=== PATIENT | male | born 1965 | race Caucasian/White ===

== ENCOUNTER 2017-01-15 14:59 | Inpatient (IN) | payer BC ==
[~2017-01-15] VITALS: Ht 167.6 cm; Wt 108.0 kg
[~2017-01-15 14:59] MED LIST: IBUP-238 PO; NICO2GUM68 TOP; NYSTT TOP; Z.0.NO CURRENT MEDS
[2017-01-15 15:01] VITALS: BP 177/91; PULSE 68; RESP 16; TEMP 98.7; O2SAT 98
[2017-01-15] MEDS ORDERED: SODIUM CHLORIDE 0.9% FLUSH 10 ML FLUSH IVF PRN (16:45)
[2017-01-15 16:53] VITALS: RESP 18; O2SAT 98
[2017-01-15 17:12] LABS: AUTOMATED NEUTROPHIL # 5.2 TH/MM3 (1.8-7.7); BASOPHIL % 0.6 % (0.0-2.0); EOSINOPHIL # 0.1 TH/MM3 (0-0.4); EOSINOPHIL % 1.6 % (0.0-4.0); HEMATOCRIT 41.1 % (39.0-51.0); HEMO FLAGS DIFF FINAL; LYMPH % 26.1 % (9.0-44.0); LYMPHOCYTE # 2.1 TH/MM3 (1.0-4.8); MEAN CORPUSCULAR HEMOGLOBIN 30.4 PG (27.0-34.0); MEAN CORPUSCULAR HGB CONC 33.4 % (32.0-36.0); MONO % 6.4 % (0.0-8.0); NEUT % 65.3 % (16.0-70.0); PLATELET COUNT 219 TH/MM3 (150-450); RED BLOOD COUNT 4.51 MIL/MM3 (4.50-5.90); RED CELL DISTRIBUTION WIDTH 13.7 % (11.6-17.2)
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
--- NOTE | 2017-01-15 17:19 | RADRPT ---
EXAM DATE/TIME: 01/15/2017 16:49 [facility] COMPARISON: CT BRAIN W/O CONTRAST, November 03, 2009, 20:39. INDICATIONS : Right leg numbness for one week. RADIATION DOSE: 56.35 CTDIvol (mGy) MEDICAL HISTORY : Cardiovascular disease. SURGICAL HISTORY : None. ENCOUNTER: Initial ACUITY: 1 day PAIN SCALE: 0/10 LOCATION: Bilateral head TECHNIQUE: Multiple contiguous axial images were obtained of the head. Using automated exposure control and adj ustment of the mA and/or kV according to patient size, radiation dose was kept as low as reasonably a chievable to obtain optimal diagnostic quality images. FINDINGS: CEREBRUM: The ventricles are normal for age. No evidence of midline shift, mass lesion, hemorrhage or acute in farction. No extra-axial fluid collections are seen. Incidental note of cavum septa pellucida. POSTERIOR FOSSA: The cerebellum and brainstem are intact. The 4th ventricle is midline. The cerebellopontine angle i s unremarkable. EXTRACRANIAL: The visualized portion of the orbits is intact. SKULL: The calvaria is intact. No evidence of skull fracture. CONCLUSION: Negative noncontrast CT brain. Isidoro Reyna MD on January 15, 2017 at 17:16 Board Certified Radiologist. This report was verified electronically.
[2017-01-15 17:22] LABS: APTT (PATIENT) 27.5 SEC (24.3-30.1); PROTHROMBIN TIME - PATIENT 11.1 SEC (9.8-11.6)
--- NOTE | 2017-01-15 17:26 | RADRPT ---
EXAM DATE/TIME: 01/15/2017 17:19 [facility] COMPARISON: No previous studies available for comparison. INDICATIONS : Weakness. Short of breath. MEDICAL HISTORY : None. SURGICAL HISTORY : None. ENCOUNTER: Initial ACUITY: 1 day PAIN SCORE: 5/10 LOCATION: Bilateral chest FINDINGS: A single view of the chest demonstrates the lungs to be symmetrically aerated without evidence of mas s, infiltrate or effusion. The cardiomediastinal contours are unremarkable. Osseous structures are intact. CONCLUSION: The lungs are clear. Isidoro Reyna MD on January 15, 2017 at 17:23 Board Certified Radiologist. This report was verified electronically.
--- NOTE | 2017-01-15 17:28 | RADRPT ---
EXAM DATE/TIME: 01/15/2017 17:20 [facility] COMPARISON: No previous studies available for comparison. INDICATIONS : Cord compression. Pain and weakness down right leg. MEDICAL HISTORY : None. SURGICAL HISTORY : None. ENCOUNTER: Initial ACUITY: 3 months PAIN SCORE: 7/10 LOCATION: Bilateral Paraspinal FINDINGS: Two view examination was performed. There are five non-rib bearing vertebral bodies. The vertebral bodies are in normal alignment without evidence of subluxation or scoliosis. The disc spaces are arnav ntained. The pedicles are intact. Bony mineralization is normal. No fracture is identified. CONCLUSION: Negative exam. Isidoro Reyna MD on January 15, 2017 at 17:26 Board Certified Radiologist. This report was verified electronically.
[2017-01-15] MEDS ORDERED: SODIUM CHLOR 0.9% 1000 ML INJ 1,000 ML IV ONE (17:30)
[2017-01-15 17:33] LABS: ANION GAP 8 MEQ/L (5-15); AST (GOT) 21 U/L (15-37); BICARBONATE 27.7 MEQ/L (21.0-32.0); BLOOD UREA NITROGEN 11 MG/DL (7-18); CHLORIDE 106 MEQ/L (98-107); GLOMERULAR FILTRATION RATE 74 ML/MIN (>89); POTASSIUM 3.9 MEQ/L (3.5-5.1); SODIUM (NA) 142 MEQ/L (136-145)
[2017-01-15 17:37] LABS: ALKALINE PHOSPHATASE 100 U/L (45-117); ALT (GPT) 34 U/L (12-78); CREATINE KINASE 87 U/L (39-308); TOTAL BILIRUBIN ADULT 0.4 MG/DL (0.2-1.0)
[2017-01-15 18:01] LABS: BLOOD, URINE NEG (NEG); COMMENT (UR) CATH-CULT NOT IND; CULTURE IF INDICATED CATH CULTURE NOT IND; GLUCOSE,URINE NEG (NEG); KETONE, URINE NEG (NEG); MUCUS URINE FEW /lpf (OCC); NITRITE,URINE NEG (NEG); URINE COLOR YELLOW (YELLW/STRAW)
[2017-01-15 18:37] VITALS: BP 126/68; PULSE 70; RESP 18; O2SAT 97
--- NOTE | 2017-01-15 19:13 | PD ---
Data Data Last Documented VS Vital Signs Date Time Temp Pulse Resp B/P Pulse Ox O2 Delivery O2 Flow Rate FiO2 01/15/17 18:37 70 18 126/68 97 Room Air 01/15/17 15:01 98.7 Orders Electrocardiogram (01/15/17 16:42) Prothrombin Time / Inr (Pt) (01/15/17 16:42) Act Partial Throm Time (Ptt) (01/15/17 16:42) Complete Blood Count With Diff (01/15/17 16:42) Comprehensive Metabolic Panel (01/15/17 16:42) Creatine Kinase (Cpk) (01/15/17 16:42) Troponin I (01/15/17 16:42) Urinalysis - C+S If Indicated (01/15/17 16:42) Ct Brain W/O Iv Contrast(Rout) (01/15/17 16:42) Chest, Single Ap (01/15/17 16:42) Ecg Monitoring (01/15/17 16:42) Iv Access Insert/Monitor (01/15/17 16:42) Oximetry (01/15/17 16:42) Blood Glucose (01/15/17 16:42) Sodium Chloride 0.9% Flush (Ns Flush) (01/15/17 16:45) Spine, Lumbar - Ltd (Ap & Lat) (01/15/17 ) Bladder Scan PRN (01/15/17 16:42) Sodium Chlor 0.9% 1000 Ml Inj (Ns 1000 M (01/15/17 17:30) Mri L Spine W/O Contrast (01/15/17 ) Mri T Spine W/O Contrast (01/15/17 ) Mri C Spine W&W/O Contrast (01/15/17 ) Gadodiamide Pf Inj (Omniscan Pf Inj) (01/15/17 20:19) Admit Order (Ed Use Only) (01/15/17 22:11) Labs Laboratory Tests Test 01/15/17 01/15/17 16:40 17:30 White Blood Count 8.0 TH/MM3 Red Blood Count 4.51 MIL/MM3 Hemoglobin 13.7 GM/DL Hematocrit 41.1 % Mean Corpuscular Volume 91.0 FL Mean Corpuscular Hemoglobin 30.4 PG Mean Corpuscular Hemoglobin 33.4 % Concent Red Cell Distribution Width 13.7 % Platelet Count 219 TH/MM3 Mean Platelet Volume 9.2 FL Neutrophils (%) (Auto) 65.3 % Lymphocytes (%) (Auto) 26.1 % Monocytes (%) (Auto) 6.4 % Eosinophils (%) (Auto) 1.6 % Basophils (%) (Auto) 0.6 % Neutrophils # (Auto) 5.2 TH/MM3 Lymphocytes # (Auto) 2.1 TH/MM3 Monocytes # (Auto) 0.5 TH/MM3 Eosinophils # (Auto) 0.1 TH/MM3 Basophils # (Auto) 0.0 TH/MM3 CBC Comment DIFF FINAL Differential Comment Prothrombin Time 11.1 SEC Prothromb Time International 1.0 RATIO Ratio Activated Partial 27.5 SEC Thromboplast Time Sodium Level 142 MEQ/L Potassium Level 3.9 MEQ/L Chloride Level 106 MEQ/L Carbon Dioxide Level 27.7 MEQ/L Anion Gap 8 MEQ/L Blood Urea Nitrogen 11 MG/DL Creatinine 1.06 MG/DL Estimat Glomerular Filtration 74 ML/MIN Rate Random Glucose 90 MG/DL Calcium Level 8.6 MG/DL Total Bilirubin 0.4 MG/DL Aspartate Amino Transf 21 U/L (AST/SGOT) Alanine Aminotransferase 34 U/L (ALT/SGPT) Alkaline Phosphatase 100 U/L Total Creatine Kinase 87 U/L Troponin I LESS THAN 0.02 NG/ML Total Protein 7.2 GM/DL Albumin 3.6 GM/DL Urine Color YELLOW Urine Turbidity CLEAR Urine pH 6.0 Urine Specific [place] 1.023 Urine Protein NEG mg/dL Urine Glucose (UA) NEG mg/dL Urine Ketones NEG mg/dL Urine Occult Blood NEG Urine Nitrite NEG Urine Bilirubin NEG Urine Urobilinogen 4.0 MG/DL Urine Leukocyte Esterase NEG Urine RBC LESS THAN 1 /hpf Urine WBC LESS THAN 1 /hpf Urine Mucus FEW /lpf Microscopic Urinalysis Comment CATH-CULT NOT IND MDM Medical Record Reviewed: Yes Supervised Visit with TANYA: No Interpretation(s) Last Impressions Head CT 01/15/171641 Signed Impressions: Service Date/Time: Sunday, January 15, 2017 16:49 - CONCLUSION: Negative noncontrast CT brain. Isidoro Reyna MD Chest X-Ray 01/15/171641 Signed Impressions: Service Date/Time: Sunday, January 15, 2017 17:19 - CONCLUSION: The lungs are clear. Isidoro Reyna MD Thoracic Spine MRI 01/15/17 0000 Signed Impressions: Service Date/Time: Sunday, January 15, 2017 18:14 - CONCLUSION: 1. Small epidural impressions due to disc bulge or protrusions at T5-6, T7-8, and T8-9. No evidence of cord compression. 2. Incompletely evaluated on this examination is also a focal signal abnormality in the substance of the cervical cord at the superior C7 level characterized by T2 prolongation. Differential considerations include tumor, myelomalacia, and syrinx. Isidoro Reyna MD Lumbar Spine X-Ray 01/15/17 Signed Impressions: Service Date/Time: Sunday, January 15, 2017 17:20 - CONCLUSION: Negative exam. Isidoro Reyna MD Lumbar Spine MRI 01/15/17 0000 Signed Impressions: Service Date/Time: Sunday, January 15, 2017 18:14 - CONCLUSION: Small central disc protrusion at L5-S1 with associated annular tear predominantly contained within the epidural fat. No evidence of neural impingement. Isidoro Reyna MD Cervical Spine MRI 01/15/17 Signed Impressions: Service Date/Time: Sunday, January 15, 2017 20:02 - CONCLUSION: 1. Focal signal abnormality within the bilateral anterior column of the cervical cord at the C6 and C7 level characterized by T2 prolongation but no enhancement. 2. Moderate-sized right paracentral disc protrusion at C5-6 causing mild impression upon the right half of the cervical cord. Isidoro Reyna MD Narrative Course During the course of the patients emergency department visit, the patients history, examination, and differential diagnosis were reviewed with the patient. The patient had IV access obtained and blood work sent for analysis. The patient was placed on a cardiac cath lab manager with oximetry and blood pressure monitoring. An EKG was done on arrival. The patient's EKG shows a sinus bradycardia, no acute ST segment elevation or depression, T waves inverted in lead 3, V1. The case was checked out to me for review the patient's MRI of the T-spine and L-spine by Dr. Okeefe. She suspected that the patient's evaluation will be unremarkable, not require admission to the hospital and the patient will be up to be followed up as an outpatient. The patient was initially provided normal saline 1 L IV fluid bolus times one. The patients laboratory studies were reviewed and remarkable for a CBC that is within normal limits, CMP is remarkable for a GFR of 74, CPK 87, troponin I less than 0.02, PT PTT unremarkable, urinalysis shows 4 urobilinogen, otherwise unremarkable Radiology studies were reviewed and remarkable for a CT scan of the brain that shows a negative noncontrast CT, chest x-ray is unremarkable. Lumbar x-ray shows no acute abnormality. MRI of the T-spine showed an abnormality that was involving the lower C-spine. At [address] Pal regarding this patient's case. He reviewed the patient's MRI findings. He recommended that an emergent MRI of the C-spine with and without contrast be ordered in this patient. He was concerned about the appearance of the lower C-spine and the possibility of a transverse myelitis. MRI of the C-spine came back with an area of edema involving the cord continuing to be suspicious for transverse myelitis versus multiple sclerosis. I spoke to Dr. Pal regarding this finding. He recommended that the patient be admitted to the hospitalist group and that neurology be consulted and patient. He will continue to see the patient in consultation. The patients results were discussed with the patient, including the plan of care. I explained that further testing and/ or monitoring is indicated based on the patients history, examination, and/ or laboratory findings. Therefore, I recommended admission for additional evaluation. The patient expressed understanding and was agreeable with this plan. The patient was admitted to the hospital in stable condition and sent to a bed under the care of the [facility]. Physician Communication Physician Communication At [address] Pal regarding this patient's case. He reviewed the patient's MRI findings. He recommended that an emergent MRI of the C-spine with and without contrast be ordered in this patient. He was concerned about the appearance of the lower C-spine and the possibility of a transverse myelitis. MRI of the C-spine came back with an area of edema involving the cord continuing to be suspicious for transverse myelitis versus multiple sclerosis. I spoke to Dr. Pal regarding this finding. He recommended that the patient be admitted to the hospitalist group and that neurology be consulted and patient. He will continue to see the patient in consultation. I spoke to Moses Noguera, he did agree to admit the patient to the [facility]. Diagnosis Primary Impression: Leg weakness, bilateral Additional Impressions: Paresthesias Ataxia Admitting Information Admitting Physician Requests: Admit Destinee Crawford MD Jan 15, 2017 19:13
--- NOTE | 2017-01-15 19:30 | RADRPT ---
EXAM DATE/TIME: 01/15/2017 18:14 [facility] COMPARISON: No previous studies available for comparison. INDICATIONS : Radiculopathy. Upper extremity numbness. MEDICAL HISTORY : None. SURGICAL HISTORY : Appendectomy. ENCOUNTER: Initial ACUITY: 1 day PAIN SCORE: 5/10 LOCATION: Paraspinal TECHNIQUE: Multiplanar multisequence MRI of the thoracic spine was performed. FINDINGS: VERTEBRA: Normal vertebral body height. Homogeneous marrow signal. ALIGNMENT: Normal. CORD: There is normal alignment of the vertebral bodies of the thoracic spine with preservation of vertebra l body height. No signal abnormality seen in the marrow of the thoracic vertebral bodies. The thora cic cord is normal in configuration without focal signal abnormality. The conus is at the level of T 12. Incompletely evaluated at the periphery of the field of view is a focal rounded area of T2 prolo ngation within the substance of the cervical cord at the superior C7 level which measures 5 mm in siz e. T1-T2: Normal. T2-T3: The thecal sac has a normal diameter. No evidence of disc bulge or protrusion. T3-T4: The thecal sac has a normal diameter. No evidence of disc bulge or protrusion. T4-T5: The thecal sac has a normal diameter. No evidence of disc bulge or protrusion. T5-T6: Small right paracentral protrusion of the disc causing focal indentation of the thecal sac. Some CSF still seen surrounding the thoracic cord. No lateral extension. T6-T7: The thecal sac has a normal diameter. No evidence of disc bulge or protrusion. T7-T8: Mild bulging of the disc right paracentral without significant deformity of the thecal sac. T8-T9: Small central protrusion of the disc causes focal indentation on the thecal sac. Some CSF is still s een surrounding the thoracic cord. T9-T10: The thecal sac has a normal diameter. No evidence of disc bulge or protrusion. T10-T11: The thecal sac has a normal diameter. No evidence of disc bulge or protrusion. T11-T12: The thecal sac has a normal diameter. No evidence of disc bulge or protrusion. T12-L1: The thecal sac has a normal diameter. No evidence of disc bulge or protrusion. CONCLUSION: 1. Small epidural impressions due to disc bulge or protrusions at T5-6, T7-8, and T8-9. No evidence of cord compression. 2. Incompletely evaluated on this examination is also a focal signal abnormality in the substance of the cervical cord at the superior C7 level characterized by T2 prolongation. Differential considerat ions include tumor, myelomalacia, and syrinx. Isidoro Reyna MD on January 15, 2017 at 19:24 Board Certified Radiologist. This report was verified electronically.
--- NOTE | 2017-01-15 19:32 | RADRPT ---
EXAM DATE/TIME: 01/15/2017 18:14 [facility] COMPARISON: No previous studies available for comparison. INDICATIONS : Radiculopathy. Low back and bilateral leg pain. MEDICAL HISTORY : None. SURGICAL HISTORY : Appendectomy. ENCOUNTER: Initial ACUITY: 1 day PAIN SCORE: 5/10 LOCATION: Paraspinal TECHNIQUE: Multiplanar multisequence MRI of the lumbar spine was performed without contrast. FINDINGS: The most caudal appearing lumbar vertebra is numbered as L5. VERTEBRAE: Homogeneous signal. Normal alignment. CONUS: Normal level and configuration. T12-L1: The thecal sac has a normal diameter. No evidence of disc bulge or protrusion. The neural foramina are patent bilaterally. L1-L2: The thecal sac has a normal diameter. No evidence of disc bulge or protrusion. The neural foramina are patent bilaterally. L2-L3: The thecal sac has a normal diameter. No evidence of disc bulge or protrusion. The neural foramina are patent bilaterally. L3-L4: The thecal sac has a normal diameter. No evidence of disc bulge or protrusion. The neural foramina are patent bilaterally. L4-L5: The thecal sac has a normal diameter. No evidence of disc bulge or protrusion. The neural foramina are patent bilaterally. L5-S1: There is a high intensity zone signal in the inferior posterior midline annulus and there is a mild c entral protrusion of the disc which is contained within the epidural fat. No impression upon the the jose sac and no deviation of the S1 nerve roots as they course of the bony spinal canal. CONCLUSION: Small central disc protrusion at L5-S1 with associated annular tear predominantly contained within th e epidural fat. No evidence of neural impingement. Isidoro Reyna MD on January 15, 2017 at 19:28 Board Certified Radiologist. This report was verified electronically.
[2017-01-15] MEDS ORDERED: GADODIAMIDE PF 287 MG/ML 20 ML VIAL (for RAD MRI) IV ONE (20:19)
--- NOTE | 2017-01-15 21:04 | RADRPT ---
EXAM DATE/TIME: 01/15/2017 20:02 [facility] COMPARISON: MRI THORACIC SPINE W/O CONTRAST, January 15, 2017, 18:14. INDICATIONS : Ataxia, abnormal thoracic MRI. CONTRAST: 20 cc Omniscan (gadodiamide) IV MEDICAL HISTORY : None. SURGICAL HISTORY : Appendectomy. ENCOUNTER: Initial ACUITY: 1 day PAIN SCORE: 0/10 LOCATION: Paraspinal TECHNIQUE: Multiplanar, multisequence MRI examination of the cervical spine was performed. FINDINGS: There is straightening of the cervical lordosis. Vertebral body height is maintained. There is T1 a nd T2 prolongation in the anterior superior endplate of C7. There is also enhancement seen in the sa me portion of the vertebral body with the area of enhancement measuring 7 mm. The examination was performed to characterize this signal abnormality seen on the thoracic MRI. Ther e is evidence of T2 prolongation in the anterior one half of the cervical cord centered at the C6-7 l evel. On axial planes, there are 2 discrete areas of T2 prolongation correlating to the left and rig ht anterior column. This area of signal abnormality measures 1 cm in superior inferior extent. On t he postcontrast images, there is no abnormal enhancement. There is no T1 prolongation. There is also a right 3 mm protrusion of the C5-6 disc indenting of the thecal sac and causing some i mpression upon the ventral cervical cord. No extension to the left of midline. There is some extens ion into the neural foramen on the right side with probable right-sided neural impingement. No evidence of disc bulge or protrusion at the other levels. Bony neural foramen remain patent. CONCLUSION: 1. Focal signal abnormality within the bilateral anterior column of the cervical cord at the C6 and C 7 level characterized by T2 prolongation but no enhancement. 2. Moderate-sized right paracentral disc protrusion at C5-6 causing mild impression upon the right varela lf of the cervical cord. Isidoro Reyna MD on January 15, 2017 at 20:45 Board Certified Radiologist. This report was verified electronically.
[2017-01-16] MEDS ORDERED: SENNOSIDES 8.6 MG TAB PO PRN
[2017-01-16] MEDS ORDERED: ACETAMINOPHEN 325 MG TAB PO PRN
[2017-01-16] MEDS ORDERED: BISACODYL 10 MG SUPP RECTAL PRN
[2017-01-16] MEDS ORDERED: ONDANSETRON HCL 4 MG/2 ML VIAL IVP PRN
[2017-01-16] MEDS ORDERED: NALOXONE HCL 0.4 MG/ML AMP IV PRN
[2017-01-16] MEDS ORDERED: traMADol HCL 50 MG TAB PO PRN (00:45)
[2017-01-16] MEDS: HEPARIN SODIUM - SQ 10,000 UNITS/ML VIAL SQ SCH ×2 (02:18→09:53)
[2017-01-16 02:36] VITALS: BP 118/58; PULSE 60; RESP 20; TEMP 98.2; O2SAT 96
[2017-01-16 07:55] VITALS: BP 133/83; PULSE 55; RESP 18; TEMP 98.1; O2SAT 97
[2017-01-16] MEDS: GABAPENTIN 300 MG CAP PO SCH ×2 (09:00→20:29)
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
--- NOTE | 2017-01-16 10:24 | MB ---
cc: SAMI DILLARD MD DATE OF CONSULTATION: 01/16/2017 REASON FOR CONSULTATION Abnormal findings on the MRI C-spine. HISTORY OF PRESENT ILLNESS Mr. Ramirez is a 51-year-old male who presented to the emergency room with multiple complaints. He states that he has not been feeling well for the past few weeks. He has noticed that over the last few months he had pain in the right shoulder area and lower back, constant and dull. Denies shooting, burning or radiating pain to the right upper extremity, however, he endorses numbness over the right little, ring and middle fingers with no reported weakness. He also states that when he walks he tends to lean to the left with occasional vertigo. He denies double vision but occasional blurred vision episodes associated with constant headache "like migraine" where he becomes photosensitive and phono-sensitive. He denies slurred speech, difficulty with speech, numbness of the face, loss of vision, convulsions, weakness of an extremity or abnormal sphincter control. The patient states that his symptoms are progressive over the last few months and he is here mainly for the pain in the right shoulder and right thigh. He occasionally walks "dragging my leg." PAST MEDICAL HISTORY Heart murmur. PAST SURGICAL HISTORY Noncontributory. SOCIAL HISTORY Denies tobacco or substance abuse. He drinks alcohol once per month. ALLERGIES 1. MORPHINE. 2. PERCOCET. MEDICATIONS 1. Tramadol. 2. Nonsteroidal anti-inflammatory drugs. REVIEW OF SYSTEMS A 12-point review of systems is negative except for what is stated in the HPI. PHYSICAL EXAMINATION GENERAL: Awake, alert, good historian, in mild distress due to right shoulder pain. HEENT: Atraumatic, normocephalic. Intact hearing and intact vision. NECK: Trachea in the midline. No signs of meningeal irritation. CARDIOVASCULAR: Regular rate and rhythm. PULMONARY: Clear to auscultation. No wheezes. ABDOMEN: Soft abdomen, nontender. EXTREMITIES: No obvious deformity. No clubbing, cyanosis or edema. Moves extremities equally. NEUROLOGIC: Awake, alert, oriented to time, person and place. Intact speech. Intact speech content. No dysphasia. Cranial nerves II-XII are grossly intact. Intact external ocular motility. No nystagmus. No diplopia. No facial asymmetry. Motor system 5/5 bilateral and symmetrical upper extremities. Normal tone. No abnormal movements. Right lower extremity 5-/5 right hip flexion and right foot dorsiflexion, otherwise 5/5 in the other muscle groups and the left lower extremity.Reflexes are diminished throughout, bilateral and symmetrical. Questionable hyporeflexia/areflexia, sluggish b/l ankle reflexes after reinforcement. Plantars right downgoing, left downgoing with strong withdrawal reflex. [id number], [id number] are bilaterally intact. Sensation to temperature exam is exaggerated on the right upper extremity with questionable sensory level. PSYCHIATRIC: Appropriate mood, affect, insight and judgment. LABORATORY - WBC 8, hemoglobin 13.7, MCV 91, platelet count 219. Sodium 142, potassium 3.9 , BUN 11, creatinine 1.06.PT 11.1, INR 1. IMAGING - Thoracic spine MRI revealed small epidural impression due to disc bulge protrusion at T5-T6, T7-T8 and T8-T9. No evidence of cord compression. Incompletely evaluated on this examination is also a focal signal abnormality in the substance of the cervical cord at the superior C7 level characterized by T2 prolongation. Differential considerations include tumor, myelomalacia and syrinx. - Lumbar spine x-ray: Negative exam. - Lumbar spine MRI revealed small central disc protrusion at L5-S1 with associated annular tear predominately contained within the epidural fat. No evidence of neural impingement. - Cervical spine MRI revealed focal signal abnormality within the bilateral anterior column of the cervical cord at the C6 and C7 level characterized by T2 prolongation but no enhancement. Moderate size right paracentral disc protrusion C5-C6 causing mild impression of the right half of the cervical cord. - Head CT scan: Negative noncontrast head CT. DIAGNOSTIC IMPRESSION 1. Given the hyporeflexia/areflexia throughout, possible neuropathy/CIDP, syndrome needs to be ruled out. 2. Given the abnormal signal in the cervical spine MRI, MS should be ruled out or any other inflammatory disorder; however, hyporeflexia usually does not correlate with this diagnosis. 3. There is no history of hereditary polyneuropathy as per the patient. No history of tick bite or gonorrheal disease. PLAN 1. Neuro-checks q.4h. 2. CSF examination for biochemistry, protein, glucose, white blood cells and differential, RBC, IgG index, IgG, NMO, oligoclonal antibodies, VDRL, Lyme and fungal and bacterial culture. 3. Monitor vital signs hourly, may need telemetry. 4. Tidal volume and vital capacity twice daily. 5. DVT prophylaxis. Thank you for the opportunity to participate in the care of your patient. MD SAEED Norton/BERNICE /9:10 AM /10:01 AM [email or web address]
[2017-01-16] MEDS ORDERED: GADODIAMIDE PF 287 MG/ML 20 ML VIAL (for RAD MRI) IV ONE (10:26)
[2017-01-16] MEDS ORDERED: METH500T3 PO (11:12)
[2017-01-16] MEDS ORDERED: VENL37.5 PO (11:14)
[2017-01-16] MEDS: traMADol HCL 50 MG TAB PO PRN ×2 (11:15→17:30)
[2017-01-16] MEDS ORDERED: GABA100C4 PO ×2 (11:18→16:25)
[2017-01-16] MEDS ORDERED: NAPR500T PO (11:18)
[2017-01-16] MEDS ORDERED: AMIT1TAB79 PO (11:18)
--- NOTE | 2017-01-16 11:23 | RADRPT ---
EXAM DATE/TIME: 01/16/2017 10:03 [facility] COMPARISON: No previous studies available for comparison. INDICATIONS : Generalized weakness for 2 months with right sided numbness since yesterday. CONTRAST: 20 cc Omniscan (gadodiamide) IV MEDICAL HISTORY : None. SURGICAL HISTORY : Appendectomy. knee surgery ENCOUNTER: Subsequent ACUITY: 2 day PAIN SCORE: 0/10 LOCATION: cranial TECHNIQUE: Multiplanar, multisequence MRI of the brain was performed both prior to and following the administrat ion of paramagnetic contrast. FINDINGS: CEREBRUM: The ventricles are normal for age. No evidence of midline shift, mass lesion, hemorrhage or acute in farction. No extraaxial fluid collections are seen. The pituitary gland and suprasellar cistern are normal in configuration. WHITE MATTER: No significant signal abnormalities are seen in the white matter. POSTERIOR FOSSA: The cerebellum and brainstem are intact. The 4th ventricle is midline. The cerebellopontine angle is unremarkable. The cerebellar tonsils are normal in position. DIFFUSION IMAGING: No focal areas of restricted diffusion are seen. No evidence of acute infarction. EXTRACRANIAL: The visualized portions of the orbits and paranasal sinuses are unremarkable. POST-CONTRAST: No abnormal areas of parenchymal or dural enhancement. No evidence of blood-brain barrier breakdown. CONCLUSION: 1. No evidence of acute intracranial pathology. No masses are identified. Anselmo Solis MD on January 16, 2017 at 11:20 Board Certified Radiologist. This report was verified electronically.
--- NOTE | 2017-01-16 11:59 | HHI.PR ---
Objective Objective Results - Vital Signs Date Time Temp Pulse Resp B/P Pulse Ox O2 Delivery O2 Flow Rate FiO2 01/16/17 07:55 98.1 55 18 133/83 97 01/16/17 02:36 98.2 60 20 118/58 96 01/15/17 18:37 70 18 126/68 97 Room Air 01/15/17 16:53 18 98 Room Air 01/15/17 16:33 64 18 98 Room Air 01/15/17 15:01 98.7 68 16 177/91 98 Result Diagram: 01/15/17 1640 01/15/17 1640 Other Results Laboratory Tests Test 01/15/17 01/15/17 16:40 17:30 White Blood Count 8.0 Red Blood Count 4.51 Hemoglobin 13.7 Hematocrit 41.1 Mean Corpuscular Volume 91.0 Mean Corpuscular Hemoglobin 30.4 Mean Corpuscular Hemoglobin 33.4 Concent Red Cell Distribution Width 13.7 Platelet Count 219 Mean Platelet Volume 9.2 Neutrophils (%) (Auto) 65.3 Lymphocytes (%) (Auto) 26.1 Monocytes (%) (Auto) 6.4 Eosinophils (%) (Auto) 1.6 Basophils (%) (Auto) 0.6 Neutrophils # (Auto) 5.2 Lymphocytes # (Auto) 2.1 Monocytes # (Auto) 0.5 Eosinophils # (Auto) 0.1 Basophils # (Auto) 0.0 CBC Comment DIFF FINAL Differential Comment Prothrombin Time 11.1 Prothromb Time International 1.0 Ratio Activated Partial 27.5 Thromboplast Time Sodium Level 142 Potassium Level 3.9 Chloride Level 106 Carbon Dioxide Level 27.7 Anion Gap 8 Blood Urea Nitrogen 11 Creatinine 1.06 Estimat Glomerular Filtration 74 Rate Random Glucose 90 Calcium Level 8.6 Total Bilirubin 0.4 Aspartate Amino Transf 21 (AST/SGOT) Alanine Aminotransferase 34 (ALT/SGPT) Alkaline Phosphatase 100 Total Creatine Kinase 87 Troponin I LESS THAN 0.02 Total Protein 7.2 Albumin 3.6 Urine Color YELLOW Urine Turbidity CLEAR Urine pH 6.0 Urine Specific [place] 1.023 Urine Protein NEG Urine Glucose (UA) NEG Urine Ketones NEG Urine Occult Blood NEG Urine Nitrite NEG Urine Bilirubin NEG Urine Urobilinogen 4.0 Urine Leukocyte Esterase NEG Urine RBC LESS THAN 1 Urine WBC LESS THAN 1 Urine Mucus FEW Microscopic Urinalysis Comment CATH-CULT NOT IND Physical Exam Physical Exam pt is seen & Examined d/w PT & sig other at bedside d/w caleb Neurology input appreciated neuro checks ordered Spinal tap ordered cont analgesic pt meets Inpatient criteria , needs further diagnostic w/u to establish diagnosis & rec appropriate treatment . Expected LOS is 3 to 4 days. Possibl;e d/c home w HHC vs SNF . d/w caseworker intake , change to Inpatient will f/u Gaurav Dumont MD Jan 16, 2017 11:59
[2017-01-16 12:16] VITALS: BP 139/78; PULSE 55; RESP 20; TEMP 98.1; O2SAT 99
--- NOTE | 2017-01-16 14:20 | EKG ---
Date Performed: 01/15/2017 Time Performed: 17:54:58 PTAGE: 51 years EKG: SINUS BRADYCARDIA LOW QRS VOLTAGE IN PRECORDIAL LEADS BORDERLINE ECG Compared to prior trac ing no significant change PREVIOUS TRACING : 02/04/2011 23.50 DOCTOR: Berny Vieira Interpretating Date/Time 01/16/2017 14:19:30
--- NOTE | 2017-01-16 15:38 | PD.RAD ---
Post Procedure Progress Note Pre Procedure Diagnosis: (1) Leg weakness, bilateral Post Procedure Diagnosis: (1) Leg weakness, bilateral Procedure Date: Jan 16, 2017 Supervising Radiologist: Gerardo Gipson Proceduralist/Assist: Alex Kelly RT(R), RT Jefferson(R)() Anesthesia: Local Plan of Activity Patient to Unit: Nursing Unit Patient Condition: Good See PACS Report for procedural detail/treatment Spinal Procedure Lumbar Puncture L3-L4 Fluid Removal (CCs): 18 Fluid Description: Clear Puncture Time: 15:14 Gerardo Gipson MD Jan 16, 2017 15:38
--- NOTE | 2017-01-16 15:44 | RADRPT ---
EXAM DATE/TIME: 01/16/2017 15:55 [place] COMPARISON: No previous studies available for comparison. INDICATIONS : Patient with weakness and numbness in lower extremities in need of a lumbar puncture with opening pre ssure. MEDICAL HISTORY : 1.Heart murmur 2.Vertigo 3.Anxiety 4.Headaches 5.Neck melanoma SURGICAL HISTORY : 1.Melanoma removal one year ago 2.Left ACl reconstruction 3.Appendectomy ENCOUNTER: Initial ACUITY: 2 days PAIN SCORE: 7/10 Back LUMBAR PUNCTURE TIME: 1514 hours FLUORO TIME: 1.0 minutes ACCESS LEVEL: L3-4 OPENING PRESSURE: 17 cm of water CLOSING PRESSURE: Not requested. FLUID: 18 cc of clear CSF was collected and sent to the laboratory for analysis. PROCEDURE : 1. Fluoroscopic guided lumbar puncture. 2. Recording of opening pressure. The risks, benefits and alternatives to the procedure were explained and verbal and written consent w as obtained. The site was prepped in sterile fashion. Full sterile technique was used, including ca p, mask, sterile gloves and gown and a large sterile sheet. Hand hygiene and 2% chlorhexidine and/or betadine/alcohol prep was utilized per protocol for cutaneous antisepsis. The skin and subcutaneous tissues were infiltrated with local anesthetic solution. With fluoroscopic guidance the lumbar thecal sac was punctured at the above level described above and the opening pressure was recorded. The above described fluid was removed without difficulty. The patient tolerated the procedure well and there were no complications. CONCLUSION: Uncomplicated fluoroscopically guided lumbar puncture with pressures as above. Gerardo Gipson MD on January 16, 2017 at 15:42 Board Certified Radiologist. This report was verified electronically.
[2017-01-16] MEDS ORDERED: GABA300C5 PO (16:25)
[2017-01-16 16:44] LABS: VOLUME TUBE # 1 3.2 ML
[2017-01-16 16:45] LABS: CSF LYMPHOCYTES 43 %; CSF MONOCYTES 57 %; CSF NEUTROPHILS 0 %; GROSS BLOOD TUBE #1 0 (0); GROSS BLOOD TUBE #2 0 (0); GROSS BLOOD TUBE #3 0 (0); GROSS BLOOD TUBE #4 0 (0); SUPERNATE COLOR TUBE #1 CLEAR (CLEAR); SUPERNATE COLOR TUBE #2 CLEAR (CLEAR); SUPERNATE COLOR TUBE #3 CLEAR (CLEAR); SUPERNATE COLOR TUBE #4 CLEAR (CLEAR); VOLUME TUBE # 4 7.7 ML; WBC TUBE #4 4 /MM3 (0-10)
[2017-01-16 19:00] VITALS: BP 107/55; PULSE 55; RESP 14; O2SAT 99
[2017-01-16 20:22] VITALS: BP 110/56; PULSE 66; RESP 18; TEMP 97.9; O2SAT 98
[2017-01-16 23:54] VITALS: BP 116/58; PULSE 60; RESP 20; TEMP 98.3; O2SAT 96
[2017-01-17] MEDS: traMADol HCL 50 MG TAB PO PRN ×3 (00:03→17:38)
[2017-01-17 03:32] VITALS: BP 103/52; PULSE 59; RESP 20; TEMP 97.8; O2SAT 95
[2017-01-17 08:04] VITALS: BP 121/64; PULSE 64; RESP 18; TEMP 98.8; O2SAT 97
[2017-01-17] MEDS: GABAPENTIN 300 MG CAP PO SCH ×2 (09:18→23:25)
--- NOTE | 2017-01-17 09:39 | HHI.PR ---
Subjective Subjective Remarks Resting in bed Alert, very anxious Wants to find out results and very nervous about findings Worried about job No family present for now Afebrile (Hayley Alonso) Review of Systems Constitutional Constitutional: Fatigue, Weakness Constitutional Remarks 10 point ROS done positives noted generalized weakness and fatigue with some decreased appetite, difficulty with coordination and ambulation standing, anxiety, other systems negative or unremarkable (Hayley Alonso) GI/Abdomen GI/Abdomen Remarks Decreased appetite (Hayley Alonso) Musculoskeletal MS: Weakness, Stiffness, Discomfort/Pain (especially lower extremities and back ) (Hayley Alonso) Neurologic Neurologic: Numbness, Tingling (extremities) (Hayley Alonso) Psychiatric Psychiatric: Normal Mood, Anxiety (Hayley Alonso) Vitals/Results Intake & Output 01/16/17 01/16/17 01/17/17 15:00 23:00 07:00 Intake Total 200 ml 200 ml Output Total 750 ml Balance -750 ml 200 ml 200 ml Intake Oral 200 ml 200 ml Output Urine Total 750 ml # Voids 2 # Bowel Movements 1 1 Vital Signs Vital Signs Date Time Temp Pulse Resp B/P Pulse Ox O2 Delivery O2 Flow Rate FiO2 01/17/17 08:04 98.8 64 18 121/64 97 01/17/17 03:32 97.8 59 20 103/52 95 01/17/17 02:58 18 01/16/17 23:54 98.3 60 20 116/58 96 01/16/17 20:22 97.9 66 18 110/56 98 01/16/17 19:00 55 14 107/55 99 01/16/17 12:16 98.1 55 20 139/78 99 (Hayley Alonso) CBC/BMP: 01/15/17 1640 01/15/17 1640 Lab Results Laboratory Tests Test 01/16/17 15:14 CSF Volume (Tube 1) 3.2 ML CSF Supernatant Color (tube 1) CLEAR CSF Gross Blood (Tube 1) 0 CSF Volume (Tube 2) 3.0 ML CSF Supernatant Color (tube 2) CLEAR CSF Gross Blood (Tube 2) 0 CSF Volume (Tube 3) 4.0 ML CSF Supernatant Color (tube 3) CLEAR CSF Gross Blood (Tube 3) 0 CSF Volume (Tube 4) 7.7 ML CSF Supernatant Color (tube 4) CLEAR CSF Gross Blood (Tube 4) 0 CSF WBC (Tube 4) 4 /MM3 CSF RBC (Tube 4) 2 /MM3 CSF Neutrophils 0 % CSF Lymphocytes 43 % CSF Monocytes 57 % CSF Glucose 79 MG/DL CSF Total Protein 74.3 MG/DL Microbiology Microbiology 01/16/17 Gram Stain - Final, Resulted 01/16/17 CSF Culture - Preliminary, Resulted NO GROWTH IN 24 HOURS. 01/16/17 Acid Fast Stain, Received Pending 01/16/17 Mycobacterial Culture, Received Pending 01/16/17 Fungal Smear - Final, Resulted NO FUNGAL ELEMENTS SEEN. 01/16/17 Fungal Culture, Resulted Pending Imaging Remarks Last Impressions Lumbar Puncture Fluoroscopy 01/16/17 0000 Signed Impressions: Service Date/Time: Monday, January 16, 2017 15:55 - CONCLUSION: Uncomplicated fluoroscopically guided lumbar puncture with pressures as above. Gerardo Gipson MD Brain MRI 01/16/17 0000 Signed Impressions: Service Date/Time: Monday, January 16, 2017 10:03 - CONCLUSION: 1. No evidence of acute intracranial pathology. No masses are identified. Anselmo Solis MD Head CT 01/15/17 1642 Signed Impressions: Service Date/Time: Sunday, January 15, 2017 16:49 - CONCLUSION: Negative noncontrast CT brain. Isidoro Reyna MD Chest X-Ray 01/15/17 1642 Signed Impressions: Service Date/Time: Sunday, January 15, 2017 17:19 - CONCLUSION: The lungs are clear. Isidoro Reyna MD Thoracic Spine MRI 01/15/17 0000 Signed Impressions: Service Date/Time: Sunday, January 15, 2017 18:14 - CONCLUSION: 1. Small epidural impressions due to disc bulge or protrusions at T5-6, T7-8, and T8-9. No evidence of cord compression. 2. Incompletely evaluated on this examination is also a focal signal abnormality in the substance of the cervical cord at the superior C7 level characterized by T2 prolongation. Differential considerations include tumor, myelomalacia, and syrinx. Isidoro Reyna MD Lumbar Spine X-Ray 01/15/17 0000 Signed Impressions: Service Date/Time: Sunday, January 15, 2017 17:20 - CONCLUSION: Negative exam. Isidoro Reyna MD Lumbar Spine MRI 01/15/17 0000 Signed Impressions: Service Date/Time: Sunday, January 15, 2017 18:14 - CONCLUSION: Small central disc protrusion at L5-S1 with associated annular tear predominantly contained within the epidural fat. No evidence of neural impingement. Isidoro Reyna MD Cervical Spine MRI 01/15/17 0000 Signed Impressions: Service Date/Time: Sunday, January 15, 2017 20:02 - CONCLUSION: 1. Focal signal abnormality within the bilateral anterior column of the cervical cord at the C6 and C7 level characterized by T2 prolongation but no enhancement. 2. Moderate-sized right paracentral disc protrusion at C5-6 causing mild impression upon the right half of the cervical cord. Isidoro Reyna MD Current Medications Administered Medications Medications (Trade) Dose Ordered Sig/Rhoda Route PRN Reason Start Time Stop Time Status Last Admin Dose Admin Heparin Sodium (Porcine) (Heparin Inj) 5,000 units Q12H SQ 01/16/17 00:00 01/16/17 02:18 Gabapentin (Neurontin) 300 mg BID PO 01/16/17 09:00 01/17/17 09:18 Tramadol HCl (Ultram) 100 mg Q6H PRN PO moderate pain 01/16/17 12:45 01/17/17 09:18 (Hayley AlonsoP) Physical Exam General General Appearance: Well Developed, Well Nourished, Anxious (Hayley Alonso SEAFOOD FARMER) Eyes Eye Exam: Pupils Equal, Pupils Reactive (Hayley Alonso SEAFO[employer] FARMER) Ears & Nose Ears & Nose Exam: Nasal Mucosa [place] (Hayley Alonso SEAFOOD FARMER) Throat Throat Exam: Oral Mucosa [place] & Moist (Hayley Alonso SEAFOOD FARMER) Neck Neck Exam: Neck Supple, Trachea Midline (Hayley Alonso SEAFOOD FARMER) Pulmonary Resp Exam: Clear Bilaterally (Hayley Alonso SEAFOOD FARMER) Cardiology CV Exam: Regular (Hayley Alonso. SEAFOOD FARMER) Gastrointestinal/Abdomen GI Exam: Soft, Bowel Sounds Present (Hayley AlonsoP) Musculoskeletal MS Exam: Joints Intact, Rigidity, Antalgic Gait (Hayley Alonso) Integumentary Skin Exam: Clear, Warm, Dry, Normal Turgor (Hayley Alonso) Extremeties Extremities Exam: No Edema (lower extremities) (Hayley Alonso) Neurologic Neuro Exam: Alert, Awake, Oriented, Speech Clear (Hayley Alonso) VTE Prophylaxis VTE Prophylaxis Device: SCDs VTE Prophylaxis Meds: Heparin (Hayley Alonso) Assessment/Plan Assessment/Plan 1. Spinal cord edema, possible transverse myelitis. 2. Anxiety disorder. 3. Arthritis. 4. Debility related to struggles with mobility and ambulation, vertigo and headaches. 5. Degenerative disc disease. Hypertension, uncontrolled Vital signs reviewed, afebrile normal trends Labs reviewed, pending some labs post spinal tap neurology consult for expert opinion. Recommendations as follows 1. Neuro-checks q.4h. 2. CSF examination for biochemistry, protein, glucose, white blood cells and differential, RBC, IgG index, IgG, NMO, oligoclonal antibodies, VDRL, Lyme and fungal and bacterial culture. Current aggressive workup for plan of care Medical management for patient's comorbidities which include his anxiety Supportive care to finding out problem and solutions to plan of care Encourage patient to be safe but set on side of the bed, and call for assistance if needed for any activity Bowel regimen, normal bowel movement 2 days ago Telemetry for any dysrhythmias Added PO clonidine prn for uncontrolled HTN We will follow any acute needs (Hayley Alonso) Assessment/Plan pt is seen & examined d/w PT & his at bedside d/w Hayley s/p LP , Normal WBC/RBC count , elevated Protein serologic w/u [p] agree w above will f/u (Gaurav Dumont MD) Hayley Alonso Jan 17, 2017 09:39 Gaurav Dumont MD Jan 17, 2017 17:40
[2017-01-17] MEDS: HEPARIN SODIUM - SQ 10,000 UNITS/ML VIAL SQ SCH ×3 (10:24→23:27)
[2017-01-17] MEDS ORDERED: cloNIDine HCL 0.1 MG TAB PO PRN (13:15)
[2017-01-17 16:35] VITALS: BP 142/76; PULSE 58; RESP 18; TEMP 98; O2SAT 96
[2017-01-17] MEDS: CYCLOBENZAPRINE HCL 10 MG TAB PO SCH ×2 (17:38→23:26)
[2017-01-17] MEDS: AMITRIPTYLINE HCL 10 MG TAB PO SCH ×2 (17:39→23:25)
[2017-01-17 19:47] VITALS: BP 125/73; PULSE 61; RESP 18; TEMP 98.1; O2SAT 96
--- NOTE | 2017-01-17 22:29 | HHI.PR ---
Review/Management Diagnosis 1. Given the hyporeflexia/areflexia throughout, possible neuropathy/CIDP, syndrome needs to be ruled out. 2. Given the abnormal signal in the cervical spine MRI, MS should be ruled out or any other inflammatory disorder; however, hyporeflexia usually does not correlate with this diagnosis. 3. There is no history of hereditary polyneuropathy as per the patient. No history of tick bite or gonorrheal disease. Plan 1. Neuro-checks q.4h. 2. Awaiting results for CSF examination; biochemistry, protein, glucose, white blood cells and differential, RBC, IgG index, IgG, NMO, oligoclonal antibodies, VDRL, Lyme and fungal and bacterial culture. 3. PT/OT, recommendations are appreciated 4. DVT prophylaxis. Diagnosis/Plan: Subjective Subjective Comments No acute events reported LP done uneventfully, awaiting lab results No reported headache Family at bed side Active Medications Current Medications Medications (Trade) Dose Ordered Sig/Rhoda Route Start Time Stop Time Status Last Admin (NS Flush) 2 ml UNSCH PRN IVF 01/15/17 16:45 (Tylenol) 650 mg Q4H PRN PO 01/16/17 00:00 (Zofran Inj) 4 mg Q6H PRN IVP 01/16/17 00:00 (Dulcolax Supp) 10 mg DAILY PRN RECTAL 01/16/17 00:00 (Senokot) 17.2 mg Q12H PRN PO 01/16/17 00:00 (Heparin Inj) 5,000 units Q12H SQ 01/16/17 00:00 01/16/17 02:18 (Narcan Inj) 0.4 mg UNSCH PRN IV 01/16/17 00:00 (Ultram) 100 mg Q6H PRN PO 01/16/17 12:45 01/17/17 17:38 (Neurontin) 300 mg BID PO 01/17/17 21:00 (Elavil) 10 mg ACHS PO 01/17/17 16:00 01/17/17 17:39 (Effexor Xr) 37.5 mg DAILY PO 01/18/17 09:00 (Flexeril) 10 mg Q8HR PO 01/17/17 14:00 01/17/17 17:38 (Catapres) 0.1 mg Q6H PRN PO 01/17/17 13:15 Allergies Allergies Coded Allergies Morphine (Verified Adverse Reaction, Severe, Syncope, 01/15/17) Percocet (Verified Adverse Reaction, Severe, "Got addicted to it", 01/15/17) Exam I&O / VS 01/16/17 01/16/17 01/17/17 14:59 22:59 06:59 Intake Total 200 ml 200 ml Output Total 750 ml Balance -750 ml 200 ml 200 ml Intake Oral 200 ml 200 ml Output Urine Total 750 ml # Voids 2 # Bowel Movements 1 1 Vital Signs Date Time Temp Pulse Resp B/P Pulse Ox O2 Delivery O2 Flow Rate FiO2 01/17/17 19:47 98.1 61 18 125/73 96 01/17/17 16:35 98.0 58 18 142/76 96 01/17/17 08:04 98.8 64 18 121/64 97 01/17/17 03:32 97.8 59 20 103/52 95 01/17/17 02:58 18 01/16/17 23:54 98.3 60 20 116/58 96 Exam Comments GENERAL: Awake, alert, good historian, in mild distress and anxious to know about test results. HEENT: Atraumatic, normocephalic. Intact hearing and intact vision. NECK: Trachea in the midline. No signs of meningeal irritation. CARDIOVASCULAR: Regular rate and rhythm. PULMONARY: Clear to auscultation. No wheezes. ABDOMEN: Soft abdomen, nontender. EXTREMITIES: No obvious deformity. No clubbing, cyanosis or edema. Moves extremities equally. NEUROLOGIC: Awake, alert, oriented to time, person and place. Intact speech. Intact speech content. No dysphasia. Cranial nerves II-XII are grossly intact. Intact external ocular motility. No nystagmus. No diplopia. No facial asymmetry. Motor system 5/5 bilateral and symmetrical upper extremities. Normal tone. No abnormal movements. Right lower extremity 5-/5 right hip flexion and right foot dorsiflexion, otherwise 5/5 in the other muscle groups and the left lower extremity.Reflexes are diminished throughout, bilateral and symmetrical. Questionable hyporeflexia/areflexia, sluggish b/l ankle reflexes after reinforcement. Plantars right downgoing, left downgoing with strong withdrawal reflex. [id number], [id number] are bilaterally intact. Sensation to temperature exam is exaggerated on the right upper extremity with questionable sensory level. PSYCHIATRIC: Appropriate mood, affect, insight and judgment. Objective Radiology Results Last 72 hours Impressions Lumbar Puncture Fluoroscopy 01/16/17 0000 Signed Impressions: Service Date/Time: Monday, January 16, 2017 15:55 - CONCLUSION: Uncomplicated fluoroscopically guided lumbar puncture with pressures as above. Gerardo Gipson MD Brain MRI 01/16/17 Signed Impressions: Service Date/Time: Monday, January 16, 2017 10:03 - CONCLUSION: 1. No evidence of acute intracranial pathology. No masses are identified. Anselmo Solis MD Head CT 01/15/171641 Signed Impressions: Service Date/Time: Sunday, January 15, 2017 16:49 - CONCLUSION: Negative noncontrast CT brain. Isidoro Reyna MD Chest X-Ray 01/15/171641 Signed Impressions: Service Date/Time: Sunday, January 15, 2017 17:19 - CONCLUSION: The lungs are clear. Isidoro Reyna MD Last 72 hours Impressions Lumbar Puncture Fluoroscopy 01/16/17 0000 Signed Impressions: Service Date/Time: Monday, January 16, 2017 15:55 - CONCLUSION: Uncomplicated fluoroscopically guided lumbar puncture with pressures as above. Gerardo Gipson MD Brain MRI 01/16/17 Signed Impressions: Service Date/Time: Monday, January 16, 2017 10:03 - CONCLUSION: 1. No evidence of acute intracranial pathology. No masses are identified. Anselmo Solis MD Head CT [id number]/15/171641 Signed Impressions: Service Date/Time: Sunday, January 15, 2017 16:49 - CONCLUSION: Negative noncontrast CT brain. Isidoro Reyna MD Chest X-Ray 01/15/171641 Signed Impressions: Service Date/Time: Sunday, January 15, 2017 17:19 - CONCLUSION: The lungs are clear. Isidoro Reyna MD Micro and Labs Date/Time Procedure Status Source Growth 01/16/17 15:14 Gram Stain - Final Resulted Cerebral Spinal Fluid Lumbar Puncture 01/16/17 15:14 CSF Culture - Preliminary Resulted Cerebral Spinal Fluid Lumbar Puncture NO GROWTH IN 24 HOURS. 01/16/17 15:14 Fungal Smear - Final Resulted Cerebral Spinal Fluid Lumbar Puncture NO FUNGAL ELEMENTS SEEN. 01/16/17 15:14 Fungal Culture Resulted Cerebral Spinal Fluid Lumbar Puncture Pending 01/16/17 15:14 Acid Fast Stain Received Cerebral Spinal Fluid Lumbar Puncture Pending 01/16/17 15:14 Mycobacterial Culture Received Cerebral Spinal Fluid Lumbar Puncture Pending Olena Dick MD Jan 17, 2017 22:29
[2017-01-18 00:34] VITALS: BP 101/52; PULSE 57; RESP 18; O2SAT 93
[2017-01-18 04:22] VITALS: BP 101/55; PULSE 53; RESP 18; O2SAT 92
[2017-01-18] MEDS: CYCLOBENZAPRINE HCL 10 MG TAB PO SCH ×3 (06:46→22:57)
[2017-01-18] MEDS: AMITRIPTYLINE HCL 10 MG TAB PO SCH ×4 (06:46→20:32)
[2017-01-18 07:45] VITALS: BP 122/60; PULSE 57; RESP 22; O2SAT 97
[2017-01-18 08:25] LABS: HSV 1,PCR Negative (Negative)
--- NOTE | 2017-01-18 08:39 | HHI.PR ---
Subjective Subjective Remarks Resting in bed Still remains anxious over test results Worried about job Family in when necessary Afebrile (Hayley Alonso) Review of Systems Constitutional Constitutional: Fatigue, Weakness Constitutional Remarks 10 point ROS done positives noted generalized weakness and fatigue with some decreased appetite, difficulty with coordination and ambulation standing, anxiety, other systems negative or unremarkable (Hayley Alonso) GI/Abdomen GI/Abdomen Remarks Decreased appetite (Hayley Alonso) Musculoskeletal MS: Weakness, Stiffness, Discomfort/Pain (especially lower extremities and back ) (Hayley Alonso) Neurologic Neurologic: Numbness, Tingling (extremities) (Hayley Alonso) Psychiatric Psychiatric: Normal Mood, Anxiety (Hayley Alonso) Vitals/Results Vital Signs Vital Signs Date Time Temp Pulse Resp B/P Pulse Ox O2 Delivery O2 Flow Rate FiO2 01/18/17 07:45 57 22 122/60 97 01/18/17 04:22 53 18 101/55 92 01/18/17 00:34 57 18 101/52 93 01/17/17 19:47 98.1 61 18 125/73 96 01/17/17 16:35 98.0 58 18 142/76 96 (Hayley Alonso) CBC/BMP: 01/15/17 1640 01/15/17 1640 Imaging Remarks Last Impressions Lumbar Puncture Fluoroscopy 01/16/17 0000 Signed Impressions: Service Date/Time: Monday, January 16, 2017 15:55 - CONCLUSION: Uncomplicated fluoroscopically guided lumbar puncture with pressures as above. Gerardo Gipson MD Brain MRI 01/16/17 0000 Signed Impressions: Service Date/Time: Monday, January 16, 2017 10:03 - CONCLUSION: 1. No evidence of acute intracranial pathology. No masses are identified. Anselmo Solis MD Head CT 01/15/17 1642 Signed Impressions: Service Date/Time: Sunday, January 15, 2017 16:49 - CONCLUSION: Negative noncontrast CT brain. Isidoro Reyna MD Chest X-Ray 01/15/17 1642 Signed Impressions: Service Date/Time: Sunday, January 15, 2017 17:19 - CONCLUSION: The lungs are clear. Isidoro Reyna MD Thoracic Spine MRI 01/15/17 0000 Signed Impressions: Service Date/Time: Sunday, January 15, 2017 18:14 - CONCLUSION: 1. Small epidural impressions due to disc bulge or protrusions at T5-6, T7-8, and T8-9. No evidence of cord compression. 2. Incompletely evaluated on this examination is also a focal signal abnormality in the substance of the cervical cord at the superior C7 level characterized by T2 prolongation. Differential considerations include tumor, myelomalacia, and syrinx. Isidoro Reyna MD Lumbar Spine X-Ray 01/15/17 0000 Signed Impressions: Service Date/Time: Sunday, January 15, 2017 17:20 - CONCLUSION: Negative exam. Isidoro Reyna MD Lumbar Spine MRI 01/15/17 0000 Signed Impressions: Service Date/Time: Sunday, January 15, 2017 18:14 - CONCLUSION: Small central disc protrusion at L5-S1 with associated annular tear predominantly contained within the epidural fat. No evidence of neural impingement. Isidoro Reyna MD Cervical Spine MRI 01/15/17 Signed Impressions: Service Date/Time: Sunday, January 15, 2017 20:02 - CONCLUSION: 1. Focal signal abnormality within the bilateral anterior column of the cervical cord at the C6 and C7 level characterized by T2 prolongation but no enhancement. 2. Moderate-sized right paracentral disc protrusion at C5-6 causing mild impression upon the right half of the cervical cord. Isidoro Reyna MD (Hayley Alonso) Physical Exam General General Appearance: Well Developed, Well Nourished, Anxious (Hayley Alonso M. GEOPHYSICIST) Eyes Eye Exam: Pupils Equal, Pupils Reactive (Hayley Alonso M. GEOPHYSICIST) Ears & Nose Ears & Nose Exam: Nasal Mucosa [place] (Ava Alonsoan M. GEOPHYSICIST) Throat Throat Exam: Oral Mucosa [place] & Moist (Ava Alonsoan M. GEOPHYSICIST) Neck Neck Exam: Neck Supple, Trachea Midline (Ava Alonsoan M. GEOPHYSICIST) Pulmonary Resp Exam: Clear Bilaterally (Ava Alonsoan M. GEOPHYSICIST) Cardiology CV Exam: Regular (Hayley Alonso M. GEOPHYSICIST) Gastrointestinal/Abdomen GI Exam: Soft, Bowel Sounds Present (Hayley AlonsoP) Musculoskeletal MS Exam: Joints Intact, Rigidity, Antalgic Gait (Hayley AlonsoP) Integumentary Skin Exam: Clear, Warm, Dry, Normal Turgor (Hayley Alonso. GEOPHYSICIST) Extremeties Extremities Exam: No Edema (lower extremities) (Hayley Alonso M. GEOPHYSICIST) Neurologic Neuro Exam: Alert, Awake, Oriented, Speech Clear (Hayley Alonso GEOPHYSICIST) VTE Prophylaxis VTE Prophylaxis Device: SCDs VTE Prophylaxis Meds: Heparin (Hayley Alonso GEOPHYSICIST) Assessment/Plan Assessment/Plan 1. Spinal cord edema, possible transverse myelitis. 2. Anxiety disorder. 3. Arthritis. 4. Debility related to struggles with mobility and ambulation, vertigo and headaches. 5. Degenerative disc disease. Hypertension, uncontrolled Bradycardia, appears asymptomatic for now Vital signs reviewed, occasional increase in blood pressure, by mouth clonidine ordered Labs reviewed, pending some labs post spinal tap, so far negative results neurology consult for expert opinion. Recommendations as follows Neuro-checks q.4h., continues with generalized weakness especially with lower legs CSF examination for biochemistry, protein, glucose, white blood cells and differential, RBC, IgG index, IgG, NMO, oligoclonal antibodies, VDRL, Lyme and fungal and bacterial culture., Labs are pending, or negative so far Degenerative disc disease Pain management Medical management for patient's comorbidities which include his anxiety Supportive care Encourage patient to be safe but set on side of the bed, and call for assistance if needed for any activity Bowel regimen, BM 1 since admission, follow needs Telemetry, patient has heart rate fluctuations between 53 bradycardia and 64. Monitor Added PO clonidine prn for uncontrolled HTN (Hayley Alonso) Assessment/Plan pt is seen & examined d/w PT await LP results d/w maggie Hardy w above cont current tx neurology f/u (Gaurav Dumont MD) CelesteHayleylonny BURNETTE Jan 18, 2017 08:38 Gaurav Dumont MD Jan 18, 2017 12:24
[2017-01-18] MEDS: GABAPENTIN 300 MG CAP PO SCH ×2 (10:04→20:32)
[2017-01-18] MEDS: VENLAFAXINE HCL XR 37.5 MG CAP PO SCH (10:04)
[2017-01-18] MEDS: traMADol HCL 50 MG TAB PO PRN ×2 (10:05→20:32)
[2017-01-18 12:18] VITALS: BP 134/66; PULSE 57; RESP 20; TEMP 98.3; O2SAT 94
[2017-01-18] MEDS: HEPARIN SODIUM - SQ 10,000 UNITS/ML VIAL SQ SCH ×2 (12:37→22:57)
[2017-01-18 15:05] LABS: IGG CSF 5.2 mg/dL (<=8.1); IGG INDEX CSF 0.48 (<=0.85); IGG/ALBUMIN CSF 0.13 (<=0.21); IGG/ALBUMIN SERUM 0.27 (<=0.40)
[2017-01-18 16:50] LABS: OLIGOCLONAL BANDING CSF 0 bands (()); OLIGOCLONAL BANDING INTERPRET 0 bands (<4); OLIGOCLONAL BANDING SERUM 0 bands (())
[2017-01-18 17:21] LABS: LYME IGG IMMUNOBLOT CSF None Detected bands (None Detected); LYME IGM IMMUNOBLOT CSF None Detected bands (None Detected)
[2017-01-18 19:24] VITALS: BP 135/66; PULSE 60; RESP 20; TEMP 98.1; O2SAT 96
[2017-01-18 22:02] VITALS: BP 133/70; PULSE 64; RESP 22; TEMP 97.8; O2SAT 98
[2017-01-19] VITALS (8 sets, daily range): BP systolic 107–145; BP diastolic 55–78; PULSE 53–88; RESP 18–22; TEMP 96.5–98.6; O2SAT 95–97
[2017-01-19] MEDS: traMADol HCL 50 MG TAB PO PRN ×2 (03:23→14:13)
[2017-01-19] MEDS: CYCLOBENZAPRINE HCL 10 MG TAB PO SCH ×3 (06:13→22:40)
[2017-01-19] MEDS: AMITRIPTYLINE HCL 10 MG TAB PO SCH ×4 (06:13→22:40)
[2017-01-19] MEDS: GABAPENTIN 300 MG CAP PO SCH ×2 (08:30→22:41)
[2017-01-19] MEDS: VENLAFAXINE HCL XR 37.5 MG CAP PO SCH (08:30)
[2017-01-19] MEDS: HEPARIN SODIUM - SQ 10,000 UNITS/ML VIAL SQ SCH ×2 (08:32→22:41)
--- NOTE | 2017-01-19 14:23 | HHI.PR ---
Subjective Subjective Remarks c/o back pain, asking for more medications has not asked for PRN Tramadol yet legs weak when he stands using walker to get around no cp no sob no fever very concerned, asking when he can go back to work. 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 [employer] Review of Systems Constitutional Constitutional Remarks 12 point ROS completed, negative except as noted above Vitals/Results Intake & Output 01/18/17 01/18/17 01/19/17 15:00 23:00 07:00 Intake Total 120 ml Output Total 850 ml Balance -730 ml Intake Oral 120 ml Output Urine Total 850 ml # Voids 2 Vital Signs Vital Signs Date Time Temp Pulse Resp B/P Pulse Ox O2 Delivery O2 Flow Rate FiO2 01/19/17 11:45 96.5 53 20 107/55 95 01/19/17 07:45 96.7 56 20 111/55 96 01/19/17 05:25 97.5 88 22 124/67 96 01/19/17 00:51 98.6 68 22 142/78 97 01/19/17 00:00 56 01/18/17 22:02 97.8 64 22 133/70 98 01/18/17 19:24 98.1 60 20 135/66 96 CBC/BMP: 01/15/17 1640 01/15/17 1640 Physical Exam General General Appearance: Well Developed, Well Nourished, Comfortable Eyes Eye Exam: Pupils Equal, Pupils Reactive Ears & Nose Ears & Nose Exam: Nasal Mucosa [place] Throat Throat Exam: Oral Mucosa [place] & Moist Neck Neck Exam: Neck Supple, Trachea Midline Pulmonary Resp Exam: Clear Bilaterally Cardiology CV Exam: Regular Gastrointestinal/Abdomen GI Exam: Soft, Non-Tender, Bowel Sounds Present, Non-Distended Musculoskeletal MS Exam: Joints Intact, Rigidity, Antalgic Gait Integumentary Skin Exam: Clear, Warm, Dry, Normal Turgor Extremeties Extremities Exam: Pedal Pulses Palpable, Trace Edema Neurologic Neuro Exam: Alert, Awake, Oriented, Speech Clear Neuro Remarks unable to elicit patellar reflexes VTE Prophylaxis VTE Prophylaxis Device: SCDs VTE Prophylaxis Meds: Heparin Assessment/Plan Assessment/Plan 1. Spinal cord edema, possible transverse myelitis. 2. Anxiety disorder. 3. Arthritis. 4. Debility related to struggles with mobility and ambulation, vertigo and headaches. 5. Degenerative disc disease. 6. Hypertension, uncontrolled 7. Bradycardia, appears asymptomatic for now 8. Acute on chronic low back pain, hx DDD Plan appreciate neurology input S/P LP, work up in progress. per neurology, given the hyporeflexia/areflexia throughout, possible neuropathy/ CIDP, syndrome needs to be ruled out. CSF results pending continue with PT PT recommends OP therapy d/w pt and S.O. given severe weakness, even if treatment is indicated, he will likely need time to recuperate and improve mobility. Encouraged him to contact employer to make appropriate arrangements. BP improved, continue with Clonidine PRN Acute on chronic pain exacerbation Continue with Tramadol PRN for back pain Flexeril as well HR stable, 50s asymptomatic Heparin for DVT prophylaxis waiting for work up to be completed CM consult for DC planning, HHC with PT if pt. agreeable D/W RN D/W Dr. Dumont D/W pt and S.O. This patient was seen by myself and Dr. Dumont, this note is written on his behalf. Joy Maria Jan 19, 2017 14:23
--- NOTE | 2017-01-19 14:24 | HHI.FF ---
Face to Face Verification Diagnosis: (1) Leg weakness, bilateral (2) Ataxia (3) Paresthesias Physical Therapy Order: Evaluate and Treat Home Health Nursing Order: Medical education Nursing assessment with vital signs Web Operations Specialist Order: To Evaluate: Support services I have seen patient Bry Ramirez on 01/19/17. My clinical findings support the need for the requested home health care services because: Deconditioned w/ increased weakness Limited ability to care for self High risk of falls I certify that my clinical findings support that this patient is homebound because: Unsteady gait/balance Joy Maria [facility] Jan 19, 2017 14:24
[2017-01-19 15:45] LABS: CSF CRYPTOCOCCUS AG CONF ND (NOT DETECTD)
[2017-01-19] MEDS ORDERED: WALKER WHEELS/F1 MIS (15:46)
--- NOTE | 2017-01-19 18:14 | HHI.PR ---
Review/Management Diagnosis 1. Given the hyporeflexia/areflexia throughout, possible neuropathy/CIDP, needs to be ruled out. 2. Given the abnormal signal in the cervical spine MRI, MS should be ruled out or any other inflammatory disorder; however, hyporeflexia usually does not correlate with this diagnosis. 3. There is no history of hereditary polyneuropathy as per the patient. No history of tick bite or STD. Plan 1. Neuro-checks q.4h. 2. Awaiting results for CSF examination; elevated protein, lab states that cells are normal, however, no available results on EMR. 3. PT/OT, recommendations are appreciated 4. DVT prophylaxis. Diagnosis/Plan: Subjective Subjective Comments No acute events reported Patient denies new symptoms Worked with PT today Pending results of CSF Patient concerned about returning back to work Active Medications Current Medications Medications (Trade) Dose Ordered Sig/Rhoda Route Start Time Stop Time Status Last Admin (NS Flush) 2 ml UNSCH PRN IVF 01/15/17 16:45 (Tylenol) 650 mg Q4H PRN PO 01/16/17 00:00 (Zofran Inj) 4 mg Q6H PRN IVP 01/16/17 00:00 (Dulcolax Supp) 10 mg DAILY PRN RECTAL 01/16/17 00:00 (Senokot) 17.2 mg Q12H PRN PO 01/16/17 00:00 (Heparin Inj) 5,000 units Q12H SQ 01/16/17 00:00 01/19/17 08:32 (Narcan Inj) 0.4 mg UNSCH PRN IV 01/16/17 00:00 (Ultram) 100 mg Q6H PRN PO 01/16/17 12:45 01/19/17 14:13 (Neurontin) 300 mg BID PO 01/17/17 21:00 01/19/17 08:30 (Elavil) 10 mg ACHS PO 01/17/17 16:00 01/19/17 18:04 (Effexor Xr) 37.5 mg DAILY PO 01/18/17 09:00 01/19/17 08:30 (Flexeril) 10 mg Q8HR PO 01/17/17 14:00 01/19/17 14:13 (Catapres) 0.1 mg Q6H PRN PO 01/17/17 13:15 Allergies Allergies Coded Allergies Morphine (Verified Adverse Reaction, Severe, Syncope, 01/15/17) Percocet (Verified Adverse Reaction, Severe, "Got addicted to it", 01/15/17) Exam I&O / VS 01/18/17 01/18/17 01/19/17 15:00 23:00 07:00 Intake Total 120 ml Output Total 850 ml Balance -730 ml Intake Oral 120 ml Output Urine Total 850 ml # Voids 2 Vital Signs Date Time Temp Pulse Resp B/P Pulse Ox O2 Delivery O2 Flow Rate FiO2 01/19/17 15:45 98.0 58 20 136/78 97 01/19/17 11:45 96.5 53 20 107/55 95 01/19/17 07:45 96.7 56 20 111/55 96 01/19/17 05:25 97.5 88 22 124/67 96 01/19/17 00:51 98.6 68 22 142/78 97 01/19/17 00:00 56 01/18/17 22:02 97.8 64 22 133/70 98 01/18/17 19:24 98.1 60 20 135/66 96 Exam Comments GENERAL: Awake, alert, mild distress and anxious to know about test results. HEENT: Atraumatic, normocephalic. Intact hearing and intact vision. NECK: Trachea in the midline. No signs of meningeal irritation. CARDIOVASCULAR: Regular rate and rhythm. PULMONARY: Clear to auscultation. No wheezes. ABDOMEN: Soft abdomen, nontender. EXTREMITIES: No obvious deformity. No clubbing, cyanosis or edema. Moves extremities equally. NEUROLOGIC: Awake, alert, oriented to time, person and place. Intact speech. Intact speech content. No dysphasia. Cranial nerves II-XII are grossly intact. Intact external ocular motility. No nystagmus. No diplopia. No facial asymmetry. Motor system 5/5 bilateral and symmetrical upper extremities. Normal tone. No abnormal movements. Right lower extremity 5-/5 right hip flexion and right foot dorsiflexion, otherwise 5/5 in the other muscle groups and the left lower extremity, with some give way due to pain.Reflexes are diminished throughout, bilateral and symmetrical. Questionable hyporeflexia/areflexia, sluggish b/l ankle reflexes after reinforcement. Plantars right downgoing, left downgoing with strong withdrawal reflex. [id number], [id number] are bilaterally intact. Sensation to temperature exam is exaggerated on the right upper extremity with questionable sensory level. PSYCHIATRIC: Appropriate mood, and affect, insight and judgment. Objective Micro and Labs Date/Time Procedure Status Source Growth 01/16/17 15:14 Gram Stain - Final Complete Cerebral Spinal Fluid Lumbar Puncture 01/16/17 15:14 CSF Culture - Final Complete Cerebral Spinal Fluid Lumbar Puncture NO GROWTH IN 72 HRS.--AEROBICALLY OR ... 01/16/17 15:14 Fungal Smear - Final Resulted Cerebral Spinal Fluid Lumbar Puncture NO FUNGAL ELEMENTS SEEN. 01/16/17 15:14 Fungal Culture Resulted Cerebral Spinal Fluid Lumbar Puncture Pending 01/16/17 15:14 Acid Fast Stain - Final Resulted Cerebral Spinal Fluid Lumbar Puncture NO ACID FAST BACILLI SEEN 01/16/17 15:14 Mycobacterial Culture Resulted Cerebral Spinal Fluid Lumbar Puncture Pending Olena Dick MD Jan 19, 2017 18:14 Olena Dick MD Jan 19, 2017 18:14
[2017-01-19 19:51] LABS: VDRL CSF NON-REACTIVE (())
[2017-01-20 05:43] VITALS: BP 120/57; PULSE 53; RESP 18; TEMP 97.5; O2SAT 97
[2017-01-20] MEDS: AMITRIPTYLINE HCL 10 MG TAB PO SCH ×3 (06:01→16:39)
[2017-01-20] MEDS: CYCLOBENZAPRINE HCL 10 MG TAB PO SCH ×2 (06:01→12:53)
[2017-01-20 08:03] VITALS: BP 121/76; PULSE 52; RESP 20; TEMP 96; O2SAT 94
[2017-01-20] MEDS: VENLAFAXINE HCL XR 37.5 MG CAP PO SCH (10:02)
[2017-01-20] MEDS: GABAPENTIN 300 MG CAP PO SCH (10:03)
[2017-01-20 10:17] VITALS: PULSE 53
[2017-01-20 11:58] VITALS: BP 124/77; PULSE 59; RESP 20; TEMP 97.2; O2SAT 95
[2017-01-20] MEDS: HEPARIN SODIUM - SQ 10,000 UNITS/ML VIAL SQ SCH (12:53)
--- NOTE | 2017-01-20 12:58 | HHI.DCPOC ---
Discharge Care Plan Diagnosis: (1) Ataxia (2) Paresthesias (3) Leg weakness, bilateral Your Health Problems Are: Difficulty with ADL Goals to Promote Your Health * To prevent worsening of your condition and complications * To maintain your health at the optimal level Directions to Meet Your Goals Take your medications as prescribed Follow your dietary instruction Follow activity as directed Keep your appointments as scheduled Take your immunizations and boosters as scheduled If your symptoms worsen call your PCP, if no PCP go to Urgent Care Center or Emergency Room Smoking is Dangerous to Your Health. Avoid second hand smoke Call the 24-hour hour crisis hotline for domestic abuse at [facility]. [facility] Jan 20, 2017 12:58
--- NOTE | 2017-01-20 13:02 | HHI.PR ---
Subjective Subjective Remarks back pain stable doing better walking, using walker no cp no sob no fever sleeping okay doesn't want to leave until he has final diagnosis Review of Systems Constitutional Constitutional Remarks 12 point ROS completed, negative except as noted above Vitals/Results Intake & Output 01/19/17 01/19/17 01/20/17 15:00 23:00 07:00 Intake Total 480 ml Output Total 400 ml Balance 480 ml -400 ml Intake Oral 480 ml Output Urine Total 400 ml # Bowel Movements 1 Vital Signs Vital Signs Date Time Temp Pulse Resp B/P Pulse Ox O2 Delivery O2 Flow Rate FiO2 01/20/17 11:58 97.2 59 20 124/77 95 01/20/17 10:17 53 01/20/17 08:03 96.0 52 20 121/76 94 01/20/17 05:43 97.5 53 18 120/57 97 01/19/17 20:00 01/19/17 19:59 97.8 66 18 140/73 96 01/19/17 15:45 98.0 58 20 136/78 97 Physical Exam General General Appearance: Well Developed, Well Nourished, Comfortable Eyes Eye Exam: Pupils Equal, Pupils Reactive Ears & Nose Ears & Nose Exam: Nasal Mucosa [place] Throat Throat Exam: Oral Mucosa [place] & Moist Neck Neck Exam: Neck Supple, Trachea Midline Pulmonary Resp Exam: Clear Bilaterally Cardiology CV Exam: Regular Gastrointestinal/Abdomen GI Exam: Soft, Non-Tender, Bowel Sounds Present, Non-Distended Musculoskeletal MS Exam: Joints Intact, Rigidity, Antalgic Gait Integumentary Skin Exam: Clear, Warm, Dry, Normal Turgor Extremeties Extremities Exam: Pedal Pulses Palpable, Trace Edema Neurologic Neuro Exam: Alert, Awake, Oriented, Speech Clear Neuro Remarks unable to elicit patellar reflexes VTE Prophylaxis VTE Prophylaxis Device: SCDs VTE Prophylaxis Meds: Heparin Assessment/Plan Assessment/Plan 1. Spinal cord edema, possible transverse myelitis. 2. Anxiety disorder. 3. Arthritis. 4. Debility related to struggles with mobility and ambulation, vertigo and headaches. 5. Degenerative disc disease. 6. Hypertension, uncontrolled 7. Bradycardia, appears asymptomatic for now 8. Acute on chronic low back pain, hx DDD Plan appreciate neurology input S/P LP, work up in progress. per neurology, given the hyporeflexia/areflexia throughout, possible neuropathy/ CIDP, syndrome needs to be ruled out. CSF results partially back, cytology negative for malignancy. Elevated prot is noted. Significance ? continue with PT PT recommends OP therapy d/w pt and S.O. given severe weakness, even if treatment is indicated, he will likely need time to recuperate and improve mobility. Encouraged him to contact employer to make appropriate arrangements. will try to contact neurology to discuss treatment plan and if okay to dc pt. BP improved, continue with Clonidine PRN Acute on chronic pain exacerbation Continue with Tramadol PRN for back pain Flexeril as well HR stable, 50s asymptomatic Heparin for DVT prophylaxis waiting for work up to be completed CM consult for DC planning, HHC with PT Possible discharge today if neurology clear. D/W RN D/W Dr. Dumont D/W pt D/W CM This patient was seen by myself and Dr. Dumont, this note is written on his behalf. Joy Maria Jan 20, 2017 13:02
[2017-01-20 16:09] VITALS: BP 128/72; PULSE 69; RESP 20; TEMP 99.3; O2SAT 98
[2017-01-20] MEDS ORDERED: ULTR50TA5 PO (16:30)
[2017-01-20] MEDS ORDERED: CYCL1TAB29 PO (16:30)
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
[2017-01-21 09:52] LABS: B. BURGDORFERI DNA PCR CSF NOT DETECTED (())
== END 2017-01-20 17:16 | disposition home health service (06) | DRG 93 ==
LOC: NEPC 14:59 → NEDA 22:12 → INTOOBSV 22:12 → NEPHCDU 01-16 02:31 → OBSVTOIN 01-16 12:26 → N05B 01-18 21:45
PROVIDERS: ADMIT Specialist; ATTEND Specialist
PROC: 009U3ZX Drainage of Spinal Canal, Percutaneous Approach, Diagnostic (ICD-10-PCS; principal; 2017-01-16)
DX: G95.19 Other vascular myelopathies (principal); M50.222 Other cervical disc displacement at C5-C6 level; M51.27 Other intervertebral disc displacement, lumbosacral region; M51.24 Other intervertebral disc displacement, thoracic region; R83.8 Other abnormal findings in cerebrospinal fluid; R26.89 Other abnormalities of gait and mobility; G89.29 Other chronic pain; F41.9 Anxiety disorder, unspecified; R01.1 Cardiac murmur, unspecified; I10 Essential (primary) hypertension; R00.1 Bradycardia, unspecified; Z85.820 Personal history of malignant melanoma of skin
CPT/HCPCS: 62270; 70450; 70553; 71010; 72100; 72146; 72148; 72156; 77003; 80053; 81001; 82040; 82042; 82550; 82784; 82945; 83873; 83916; 84157; 84484; 85025; 85610; 85730; 86403; 86592; 86618; 86780; 87015; 87070; 87102; 87116; 87205; 87206; 87529; 87801; 88112; 89051; 93005; 96360; 96361; A9579; J1644; J7030

== ENCOUNTER 2017-08-13 09:39 | Emergency (ER) | payer BC ==
[~2017-08-13] VITALS: Ht 167.6 cm; Wt 104.5 kg
[~2017-08-13 09:39] MED LIST changes: +AMIT1TAB79 PO; +CYCL10TA PO; +GABA300C5 PO; -IBUP-238 PO; +NAPR500T2 PO; -NICO2GUM68 TOP; -NYSTT TOP; +TRAM50 PO; +VENL37.5 PO; +WALKER WHEELS/F1 MIS; -Z.0.NO CURRENT MEDS
[2017-08-13 09:41] VITALS: BP 144/66; PULSE 88; RESP 18; TEMP 101; O2SAT 96
[2017-08-13] MEDS ORDERED: predniSONE 20 MG TAB PO ONE (10:15)
--- NOTE | 2017-08-13 10:18 | PD ---
HPI Chief Complaint: Cold / Flu Symptoms Time Seen by Provider: 10:21 Travel History International Travel<30 days: No Contact w/Intl Traveler<30days: No Traveled to known affect area: No History of Present Illness HPI This report is in ERROR Please disregard this report and all prior copies ! This report is in ERROR Please disregard this report and all prior copies ! This report is in ERROR Please disregard this report and all prior copies ! PFSH Past Medical History Heart Rhythm Problems: Yes (HEART MURMUR) Cardiac Catheterization: No Cardiovascular Problems: Yes High Cholesterol: No Congestive Heart Failure: No Diabetes: No Diminished Hearing: No Hypertension: No Tetanus Vaccination: Unknown Influenza Vaccination: No Past Surgical History Appendectomy: Yes Coronary Artery Bypass Graft: No Social History Alcohol Use: Yes (ONCE PER MONTH) Tobacco Use: No Substance Use: No Allergies-Medications (Allergen,Severity, Reaction): Coded Allergies: acetaminophen (Unverified Adverse Reaction, Severe, "Got addicted to it", 08/13/17) morphine (Unverified Adverse Reaction, Severe, Syncope, 08/13/17) oxycodone (Unverified Adverse Reaction, Severe, "Got addicted to it", ) Reported Meds & Prescriptions Reported Meds & Active Scripts Active Flexeril (Cyclobenzaprine HCl) 10 Mg Tab 10 Mg PO Q8HR Ultram (Tramadol HCl) 50 Mg Tab 100 Mg PO Q6H PRN Reported Gabapentin 300 Mg Cap 300 Mg PO BID Naproxen 500 Mg Tab 500 Mg PO BID PRN Effexor (Venlafaxine HCl) 37.5 Mg Tab 37.5 Mg PO DAILY Review of Systems General / Constitutional: No: Fever Eyes: No: Visual changes HENT: No: Headaches Cardiovascular: No: Chest Pain or Discomfort Respiratory: No: Shortness of Breath Gastrointestinal: No: Abdominal Pain Genitourinary: No: Dysuria Musculoskeletal: No: Pain Skin: No Rash Neurologic: No: Weakness Psychiatric: No: Depression Endocrine: No: Polydipsia Hematologic/Lymphatic: No: Easy Bruising Physical Exam Narrative This report is in ERROR Please disregard this report and all prior copies ! This report is in ERROR Please disregard this report and all prior copies ! This report is in ERROR Please disregard this report and all prior copies ! Data Data Last Documented VS Vital Signs Date Time Temp Pulse Resp B/P (MAP) Pulse Ox O2 Delivery O2 Flow Rate FiO2 08/13/17 09:41 101.0 88 18 144/66 (92) 96 Room Air Orders Orders Chest, Pa & Lat (08/13/17 ) Prednisone (Deltasone) (08/13/17 10:15) Albuterol-Ipratropium Neb (Duoneb Neb) (08/13/17 10:15) Influenzae A/B Antigen (08/13/17 10:11) MDM Medical Decision Making Medical Screen Exam Complete: No Emergency Medical Condition: Yes Differential Diagnosis This report is in ERROR Please disregard this report and all prior copies ! This report is in ERROR Please disregard this report and all prior copies ! This report is in ERROR Please disregard this report and all prior copies ! Narrative Course This report is in ERROR Please disregard this report and all prior copies ! This report is in ERROR Please disregard this report and all prior copies ! This report is in ERROR Please disregard this report and all prior copies ! Delmis Garcia Aug 13, 2017 10:18
--- NOTE | 2017-08-13 10:23 | PD ---
HPI Chief Complaint: Cold / Flu Symptoms Time Seen by Provider: 09:56 Travel History International Travel<30 days: No Contact w/Intl Traveler<30days: No Traveled to known affect area: No History of Present Illness HPI This is a 51-year-old male who presents to the emergency department with several days of cough, shortness of breath, fevers, chills and malaise. He also has mild headache. His cough has been constant, worse in the evenings, moderate severity, nonproductive. He denies any smoking history. He does say he had a fever this morning. PFSH Past Medical History Heart Rhythm Problems: Yes (HEART MURMUR) Cardiac Catheterization: No Cardiovascular Problems: Yes High Cholesterol: No Congestive Heart Failure: No Diabetes: No Diminished Hearing: No Hypertension: No Tetanus Vaccination: Unknown Influenza Vaccination: No Past Surgical History Appendectomy: Yes Coronary Artery Bypass Graft: No Social History Alcohol Use: Yes (ONCE PER MONTH) Tobacco Use: No Substance Use: No Allergies-Medications (Allergen,Severity, Reaction): Coded Allergies: acetaminophen (Unverified Adverse Reaction, Severe, "Got addicted to it", 08/13/17) morphine (Unverified Adverse Reaction, Severe, Syncope, 08/13/17) oxycodone (Unverified Adverse Reaction, Severe, "Got addicted to it", ) Reported Meds & Prescriptions Reported Meds & Active Scripts Active Flexeril (Cyclobenzaprine HCl) 10 Mg Tab 10 Mg PO Q8HR Ultram (Tramadol HCl) 50 Mg Tab 100 Mg PO Q6H PRN Reported Gabapentin 300 Mg Cap 300 Mg PO BID Naproxen 500 Mg Tab 500 Mg PO BID PRN Effexor (Venlafaxine HCl) 37.5 Mg Tab 37.5 Mg PO DAILY Review of Systems Except as stated in HPI: all other systems reviewed are Neg Physical Exam Narrative GENERAL:Well appearing, no acute distress SKIN: Focused skin assessment warm and dry. HEAD: Atraumatic. Normocephalic. EYES: Pupils equal and round. No injection or drainage. ENT: Moist mucous membranes NECK: Trachea midline. CARDIOVASCULAR: Regular rate and rhythm. No murmur appreciated. RESPIRATORY: Mild diffuse expiratory wheeze, speaking full sentences, nonproductive cough present GASTROINTESTINAL: Abdomen soft, non-tender, nondistended. MUSCULOSKELETAL: No obvious deformities. NEUROLOGICAL: Awake and alert. No obvious cranial nerve deficits. Moving all extremities. PSYCHIATRIC: Appropriate mood and affect; insight and judgment normal. Data Data Last Documented VS Vital Signs Date Time Temp Pulse Resp B/P (MAP) Pulse Ox O2 Delivery O2 Flow Rate FiO2 08/13/17 09:41 101.0 88 18 144/66 (92) 96 Room Air Orders Orders Chest, Pa & Lat (08/13/17 ) Prednisone (Deltasone) (08/13/17 10:15) Albuterol-Ipratropium Neb (Duoneb Neb) (08/13/17 10:15) Influenzae A/B Antigen (08/13/17 10:11) MDM Medical Decision Making Medical Screen Exam Complete: Yes Emergency Medical Condition: Yes Interpretation(s) Temperature to 101, no hypoxia Differential Diagnosis Pneumonia, bronchitis, influenza, congestive heart failure Narrative Course This is a 51-year-old male who presents to the emergency department with a nonproductive cough and fever. He has some diffuse expiratory wheeze on exam. I suspect he has bronchitis. Chest x-ray was ordered to rule out pneumonia. Patient will be given serial bronchodilator treatments and prednisone. An influenza was also ordered. If chest x-ray and influenza are reassuring and patient feels better he can be discharged with : 5 days of prednisone, cough suppressant and albuterol. Jennifer Smart MD Aug 13, 2017 10:23
[2017-08-13] MEDS: RESP: ALBUTEROL 2.5 MG/IPRATROPIUM 0.5 MG NEB (SCH) INH ×2 (10:34→10:35)
--- NOTE | 2017-08-13 10:35 | PD ---
Physical Exam Date Seen by Provider: Aug 13, 2017 Narrative 51-year-old male presents to emergency department for cough, fever, "lung pain". See Dr. Smart's note as well for more information. Chest x-ray- No acute process Influenza- negative Patient improved with albuterol treatment. Patient says he feels better and his 'chest is opened up'. 5 days of prednisone, cough suppressant, and albuterol for home. Patient strongly advised to follow up with his primary care physician within 3 days. Use medications as prescribed. Continue nutritious diet and plenty of fluid intake. Return to the emergency department for worsening or persistent symptoms. Data Data Last Documented VS Vital Signs Date Time Temp Pulse Resp B/P (MAP) Pulse Ox O2 Delivery O2 Flow Rate FiO2 08/13/17 11:19 08/13/17 09:41 101.0 88 18 96 Room Air Orders Orders Chest, Pa & Lat (08/13/17 ) Prednisone (Deltasone) (08/13/17 10:15) Albuterol-Ipratropium Neb (Duoneb Neb) (08/13/17 10:15) Influenzae A/B Antigen (08/13/17 10:11) Ed Discharge Order (08/13/17 11:03) MDM Supervised Visit with TANYA: Yes Diagnosis Primary Impression: Acute bronchitis Qualified Codes: J20.8 - Acute bronchitis due to other specified organisms Referrals: Primary Care Physician Additional Instruction: Follow-up a primary care physician within 2-3 days Take all medications as prescribed If your symptoms persist or worsen return to the emergency department Scripts Prednisone (Prednisone) 20 Mg Tab 40 MG PO DAILY for 5 Days, #10 TAB 0 Refills Take 40 mg (2 tablets) daily for 5 days Prov: Jennifer Smart MD 08/13/17 Benzonatate (Tessalon Perles) 100 Mg Cap 100 MG PO TID Y for COUGH for 5 Days, CAP 0 Refills Prov: Jennifer Smart MD 08/13/17 Albuterol 18 GM Inh (Ventolin Hfa 18 GM Inh) 90 Mcg/Act Aer 2 PUFF INH Q4-6H Y for SHORTNESS OF BREATH, #1 INHALER 0 Refills Prov: Jennifer Smart MD 08/13/17 Disposition: 01 DISCHARGE HOME Condition: Stable Delmis Garcia Aug 13, 2017 10:35
--- NOTE | 2017-08-13 10:41 | RADRPT ---
EXAM DATE/TIME: 08/13/2017 10:25 [facility] COMPARISON: CHEST SINGLE AP, January 15, 2017, 17:19. INDICATIONS : Short of breath, congestion, cough Chest pain when coughing MEDICAL HISTORY : Heart murmur, 5.Neck melanoma, Headaches SURGICAL HISTORY : 1.Melanoma removal one year ago, Left ACl reconstruction, Appendectomy ENCOUNTER: Initial ACUITY: 2 weeks PAIN SCORE: 3/10 LOCATION: chest FINDINGS: PA and lateral views of the chest demonstrate the lungs to be symmetrically aerated without evidence of mass, infiltrate or effusion. The cardiomediastinal contours are unremarkable. Osseous structure s are intact. CONCLUSION: No evidence of acute cardiopulmonary disease. Moses Villarreal MD on August 13, 2017 at 10:39 Board Certified Radiologist. This report was verified electronically.
[2017-08-13] MEDS ORDERED: BENZ100 PO (10:52)
[2017-08-13] MEDS ORDERED: PRED20 PO (10:52)
[2017-08-13] MEDS ORDERED: VENTAER INH (10:52)
== END 2017-08-13 11:22 | disposition home or self-care (01) ==
LOC: NEPD 09:39
DX: J20.8 Acute bronchitis due to other specified organisms (principal)
CPT/HCPCS: 71020; 87804; 94640; 94664; 99284; J7512